=== PATIENT | female | born 1995 | race Caucasian/White ===

== ENCOUNTER 2020-09-10 09:36 | Emergency (ER) | payer OTHER ==
[~2020-09-10] VITALS: Ht 167.6 cm; Wt 82.6 kg
[2020-09-10 09:43] VITALS: Ht 167.6 cm; Wt 82.6 kg
[2020-09-10 10:20] LABS: PLATELET COUNT 227 x10^3mcL (130-400); RED CELL DISTRIBUTION WIDTH 13.6 % (11.5-14.5)
[2020-09-10 10:25] LABS: BAND NEUTROPHIL 0 % (0-10); SEGMENTED NEUTROPHILS 66 % (37-75)
[2020-09-10 10:26] LABS: MONOCYTE 13 % (0-7); rbc morphology (normal/abnorm) NORMAL (NORMAL)
[2020-09-10 10:27] LABS: CALCIUM 9.3 mg/dL (8.5-10.1); CARBON DIOXIDE 27.1 mmol/L (21-32); CHLORIDE SERUM 107 mmol/L (98-107); CREATININE SERUM 0.7 mg/dL (0.6-1.0); GFR1 > 60 mL/min; GLUCOSE SERUM 90 mg/dL (74-106); PLATELET MORPHOLOGY PLATELETS NORMAL; POTASSIUM SERUM 4.2 mmol/L (3.5-5.1); SODIUM SERUM 141 mmol/L (136-145)
[2020-09-10 13:10] VITALS: BP 127/67
== END 2020-09-10 13:10 | disposition home or self-care (01) ==
LOC: ED 09:36
PROVIDERS: Emergency Medicine
DX: S86.911A Strain of unspecified muscle(s) and tendon(s) at lower leg level, right leg, initial encounter (principal); X58.XXXA Exposure to other specified factors, initial encounter; Y93.89 Activity, other specified; Y92.89 Other specified places as the place of occurrence of the external cause; Y99.8 Other external cause status
CPT/HCPCS: 85378; Q0092